=== PATIENT | female | born 1960 | race American Indian/Alaskan Native ===

== ENCOUNTER 2017-10-26 15:13 | Outpatient (CLI) | payer MEDICARE, OTHER ==
--- NOTE | 2017-10-26 16:15 | XRay Report ---
Lumbar spine: A more pain. AP and lateral projections demonstrates a very minimal rotation to the left at the thoracolumbar level. Suspicion of very minimal anterior subluxation of L4 on L5. Mild anterior traction spurs present at multiple levels. Degenerative bilateral apophyseal joint changes at L5-S1. The interspaces and vertebral height appear preserved. The bones may be minimally demineralized. Impression: Multilevel mild spondylosis. Degenerative L5-S1 apophyseal joint disease. Suspicion of minimal L4 subluxation.
== END 2017-10-26 15:14 | disposition home or self-care (01) ==
LOC: SPVIMAG 15:13
PROVIDERS: ATTEND Orthopaedic Surgery Sports Medicine
DX: M47.897 Other spondylosis, lumbosacral region (principal)
CPT/HCPCS: 72100